=== PATIENT | male | born 1985 | race Caucasian/White ===

== ENCOUNTER 2017-08-14 14:14 | Emergency (ER) | payer OTHER ==
[2017-08-14 14:44] VITALS: RESP 18
[2017-08-14] MEDS ORDERED: Amoxicillin-Clav 875-125 mg Tab PO STA (14:48)
--- NOTE | 2017-08-14 14:59 | ED PDOC ---
Arrival/HPI - General Chief Complaint: Bite Time Seen by Provider: 08/14/17 14:47 Historian: Patient EM Caveat: Acuity of Condition - History of Present Illness Narrative History of Present Illness (Text): 08/14/17 14:54 Pt is a 31 yr old male who presents to the ED for a dog bite to the right 5th digit today. Pt says he was playing with the dog at the park when the dog unintentionally bit him, breaking skin. Dog is a well known healthy dog who frequents the park with electronics repair technician daily however pt is unaware if the animal has been vaccinated for rabies. Denies pain, swelling or discharge at wound site, no fever, sob, cp, no change in motor or sensation. Pt states last rabies vaccination series approx 5 yrs ago. Time/Duration: 24 hours Symptom Onset: Sudden Symptom Course: Unchanged Quality: Unable to Describe Severity Level: 1 Activities at Onset: Rest Context: Other (park) Past Medical History - Provider Review Nursing Documentation Reviewed: Yes - Travel History Have you recently traveled outside [place] w/in the past 3 mons?: No - Infectious Disease Hx of Infectious Diseases: None - Cardiac Hx Cardiac Disorders: No - Neurological Hx Neurological Disorder: No - HEENT Other/Comment: mononucleosis - Renal Hx Renal Disorder: No - Endocrine/Metabolic Hx Endocrine Disorders: No - Genitourinary/Gynecological Hx Genitourinary Disorders: No - Psychiatric Hx Substance Use: No - Anesthesia Hx Anesthesia: No Family/Social History - Physician Review Nursing Documentation Reviewed: Yes Family/Social History: Unknown Family HX Smoking Status: Unknown If Ever Smoked Hx Alcohol Use: No Hx Substance Use: No Allergies/Home Meds Allergies/Adverse Reactions: Allergies No Known Allergies Allergy (Verified 08/14/17 14:36) Review of Systems - Review of Systems Systems not reviewed;Unavailable: Acuity of Condition Constitutional: Normal Eyes: Normal ENT: Normal Respiratory: Normal Cardiovascular: Normal Gastrointestinal: Normal Genitourinary Male: Normal Musculoskeletal: Normal Skin: Normal, Skin Lesions (on the back of right 5th finger) Neurological: Normal Endocrine: Normal Hemo/Lymphatic: Normal Psychiatric: Normal Physical Exam Vital Signs Reviewed: Yes Vital Signs Temp Pulse Resp BP Pulse Ox 08/14/17 15:51 98.6 F 78 18 132/78 99 08/14/17 14:43 98.7 F 76 18 148/90 98 Temperature: Afebrile Blood Pressure: Normal Pulse: Regular Respiratory Rate: Normal Appearance: Positive for: Well-Appearing, Non-Toxic, Comfortable Pain Distress: None Mental Status: Positive for: Alert and Oriented X 3 - Systems Exam Head: Present: Atraumatic, Normocephalic Respiratory/Chest: Present: Clear to Auscultation, Good Air Exchange. No: Respiratory Distress, Accessory Muscle Use Cardiovascular: Present: Regular Rate and Rhythm, Normal S1, S2. No: Murmurs Abdomen: Present: Normal Bowel Sounds. No: Tenderness, Distention, Peritoneal Signs Back: Present: Normal Inspection Upper Extremity: Present: Normal Inspection, Normal ROM, NORMAL PULSES, Capillary Refill < 2s. No: Cyanosis, Edema, Tenderness, Swelling Lower Extremity: Present: Normal Inspection. No: Edema Neurological: Present: GCS=15, CN II-XII Intact, Speech Normal Skin: Present: Warm, Dry, Normal Color, Other (small superficial laceration from dog tooth on dorsal aspect of right 5th digit). No: Rashes Lymphatic: No: Cervical Adenopathy, Axillary Adenopathy Psychiatric: Present: Alert, Oriented x 3, Normal Insight, Normal Concentration Medical Decision Making ED Course and Treatment: 08/14/17 14:57 Impression Pt is a 31 yr old male who presents to the ED for a dog bite to the right 5th digit today. Plan augmenting 875 PO stat Rabies 2.5 units stat next and last one Day 3 (pt was previously vaccinated 5 yrs ago) assess and dispo Progress Note 1/2 Rabies vaccination given in accordance with CDC guidelines for someone who has previously been vaccinated for Rabies. Next vacc in 3 days Pt advised to return for 2nd vacc Received Augmentin po ppx care augmentin po x 7 days VSS on d/c - Medication Orders Current Medication Orders: Discontinued Medications Amoxicillin/Clavulanate Potassium (Augmentin 875 Mg-125 Mg Tab) 1 tab PO STAT STA PRN Reason: Protocol Stop: 08/14/17 14:49 Last Admin: 08/14/17 14:57 Dose: 1 tab Rabies Vaccine Human Diploid Cell (Imovax Rabies) 2.5 units IM .ONCE ONE Stop: 08/14/17 14:51 Last Admin: 08/14/17 15:02 Dose: 2.5 units Disposition/Present on Arrival - Present on Arrival Any Indicators Present on Arrival: Yes History of DVT/PE: No History of Uncontrolled Diabetes: No Urinary Catheter: No History of Decub. Ulcer: No History Surgical Site Infection Following: None - Disposition Have Diagnosis and Disposition been Completed?: Yes Diagnosis: Dog bite of hand without complication Disposition: HOME/ ROUTINE Disposition Time: 14:59 Patient Plan: Discharge Condition: GOOD Discharge Instructions (ExitCare): Animal Bites (DC), Rabies Vaccine Additional Instructions: SAM HERNANDEZ, thank you for letting us take care of you today. Your provider was Campos Celestin MD and JESSIKA Stewart, and you were treated for DOG BITE. The emergency medical care you received today was directed at your acute symptoms. If you were prescribed any medication, please fill it and take as directed. It may take several days for your symptoms to resolve. Return to the Emergency Department if your symptoms worsen, do not improve, or if you have any other problems. RETURN IN 3 DAYS FOR THE FINAL RABIES VACCINATION TAKE THE AUGMENTIN EVERY 12 HRS UNTIL DONE Please contact your doctor or call one of the physicians/clinics you have been referred to that are listed on the Patient Visit Information form that is included in your discharge packet. Bring any paperwork you were given at discharge with you along with any medications you are taking to your follow up visit. Our treatment cannot replace ongoing medical care by a primary care provider outside of the emergency department. Thank you for allowing the [facility] team to be part of your care today. Prescriptions: Amoxicillin/Clavulanate [Augmentin 875 MG-125 MG] 1 tab PO BID 7 Days #14 tab Forms: [employer] ([place])
[2017-08-14 15:51] VITALS: BP 132/78; PULSE 78; TEMP 98.6; O2SAT 99
== END 2017-08-14 15:01 | disposition home or self-care (01) ==
LOC: ED 14:14
DX: S61.451A Open bite of right hand, initial encounter (principal); W54.0XXA Bitten by dog, initial encounter; Y92.830 Public park as the place of occurrence of the external cause; Z23 Encounter for immunization

== ENCOUNTER 2017-08-17 20:42 | Emergency (ER) | payer OTHER ==
[2017-08-17 21:14] VITALS: RESP 17
--- NOTE | 2017-08-17 21:23 | ED PDOC ---
Arrival/HPI - General Chief Complaint: Medical Clearance Time Seen by Provider: 08/17/17 20:54 Historian: Patient - History of Present Illness Narrative History of Present Illness (Text): 08/17/17 21:13 A 31 year old male, with no significant past medical history presents to the emergency department for 2nd rabies shot. Patient reports he was seen here in the emergency room 3 days ago after obtaining dog bite to right 5th digit from an unknown rabies status dog, here today only for the rabies 2nd vaccination, rt. hand 5th digit already healed and he was discharge home with augmentin. Patient denies fever, chills, difficulty of extention/flexion of hand and 5 digits, or any other complaints at this time. Past Medical History - Provider Review Nursing Documentation Reviewed: Yes - Infectious Disease Hx of Infectious Diseases: None - Cardiac Hx Cardiac Disorders: No - Neurological Hx Neurological Disorder: No - HEENT Other/Comment: mononucleosis - Renal Hx Renal Disorder: No - Endocrine/Metabolic Hx Endocrine Disorders: No - Genitourinary/Gynecological Hx Genitourinary Disorders: No - Psychiatric Hx Substance Use: No - Anesthesia Hx Anesthesia: No Family/Social History - Physician Review Nursing Documentation Reviewed: Yes Family/Social History: No Known Family HX Smoking Status: Unknown If Ever Smoked Hx Alcohol Use: No Hx Substance Use: No Allergies/Home Meds Allergies/Adverse Reactions: Allergies No Known Allergies Allergy (Verified 08/14/17 14:36) Home Medications: Home Meds Medication Instructions Recorded Confirmed No Known Home Med 08/17/17 08/17/17 Review of Systems - Physician Review All systems were reviewed & negative as marked: Yes - Review of Systems Constitutional: absent: Fevers, Night Sweats ENT: absent: Hearing Changes Respiratory: absent: SOB, Cough Cardiovascular: absent: Chest Pain Gastrointestinal: absent: Abdominal Pain, Nausea, Vomiting Musculoskeletal: absent: Arthralgias, Back Pain Skin: absent: Rash, Pruritis, Skin Lesions Neurological: absent: Headache, Dizziness Psychiatric: absent: Anxiety, Depression Physical Exam Vital Signs Reviewed: Yes Vital Signs Temp Pulse Resp BP Pulse Ox 08/17/17 21:05 98.2 F 76 17 151/87 H 100 Temperature: Afebrile Blood Pressure: Hypertensive Pulse: Regular Respiratory Rate: Normal Appearance: Positive for: Well-Appearing, Non-Toxic, Comfortable Pain Distress: None Mental Status: Positive for: Alert and Oriented X 3 - Systems Exam Head: Present: Atraumatic, Normocephalic Pupils: Present: PERRL Extroacular Muscles: Present: EOMI Conjunctiva: Present: Normal Mouth: Present: Moist Mucous Membranes Neck: Present: Normal Range of Motion Respiratory/Chest: Present: Clear to Auscultation, Good Air Exchange. No: Respiratory Distress, Accessory Muscle Use Cardiovascular: Present: Regular Rate and Rhythm, Normal S1, S2. No: Murmurs Abdomen: No: Tenderness, Distention, Peritoneal Signs Back: Present: Normal Inspection Upper Extremity: Present: Normal Inspection, Other (Rt. hand 5th digit dorsal noted to have healed scar noted with no oozing/discharge). No: Cyanosis, Edema Lower Extremity: Present: Normal Inspection. No: Edema Neurological: Present: GCS=15, CN II-XII Intact, Speech Normal Skin: Present: Warm, Dry, Normal Color. No: Rashes Psychiatric: Present: Alert, Oriented x 3, Normal Insight, Normal Concentration Medical Decision Making ED Course and Treatment: 08/17/17 21:15 Impression: 31 year old male here for 2nd shot of rabies vaccination. Plan: -- Rabies Vaccine -- Reassess and disposition Prior Visits: Patient came to the Emergency room on 08/14/2017 for dog bite to right 5th digit and received 1st Rabies vaccination the same day. Progress Notes: 08/17/17 21:20 -Pt. has no previous adverse or allergic reaction to the rabies vaccine. -Discharge home with education on return the day 7 and 14 from the initial dog bite and 1st vaccine wound for the prophylatic vaccine, return to the ER for any new or worsening signs or symptoms. - Medication Orders Current Medication Orders: Discontinued Medications Rabies Vaccine Human Diploid Cell (Imovax Rabies) 2.5 units IM .ONCE ONE Stop: 08/17/17 21:16 - PA / LADDERMAN / Resident Statement MD/DO has reviewed & agrees with the documentation as recorded. - Scribe Statement The provider has reviewed the documentation as recorded by the Lizy Carpenter Provider Scribe Provider Scribe Attestation: All medical record entries made by the Scribe were at my direction and personally dictated by me. I have reviewed the chart and agree that the record accurately reflects my personal performance of the history, physical exam, medical decision making, and the department course for this patient. I have also personally directed, reviewed, and agree with the discharge instructions and disposition. Disposition/Present on Arrival - Present on Arrival Any Indicators Present on Arrival: No History of DVT/PE: No History of Uncontrolled Diabetes: No Urinary Catheter: No History of Decub. Ulcer: No History Surgical Site Infection Following: None - Disposition Have Diagnosis and Disposition been Completed?: Yes Diagnosis: Visit for wound check, Rabies, need for prophylactic vaccination against Disposition: HOME/ ROUTINE Disposition Time: 21:26 Patient Plan: Discharge Patient Problems: Current Active Problems Problem Status Onset Visit for wound check Acute Rabies, need for prophylactic vaccination against Acute Condition: GOOD Additional Instructions: Discharge home with education on return the day 7 and 14 from the initial dog bite and 1st vaccine wound for the prophylatic vaccine, return to the ER for any new or worsening signs or symptoms. Referrals: [facility] [place] [Outside] - Follow up with primary Forms: [employer] (Irish), WORK NOTE
[2017-08-17 21:49] VITALS: BP 148/82; PULSE 78; TEMP 98; O2SAT 98
== END 2017-08-17 21:49 | disposition home or self-care (01) ==
LOC: ED 20:42
DX: Z23 Encounter for immunization (principal); S61.256D Open bite of right little finger without damage to nail, subsequent encounter; W54.0XXD Bitten by dog, subsequent encounter

== ENCOUNTER 2017-08-21 21:32 | Emergency (ER) | payer OTHER ==
[2017-08-21 21:47] VITALS: BP 135/85; RESP 18; O2SAT 99
--- NOTE | 2017-08-21 22:32 | ED PDOC ---
Arrival/HPI - General Chief Complaint: Rabies Vaccine Series Time Seen by Provider: 08/21/17 22:24 Historian: Patient - History of Present Illness Narrative History of Present Illness (Text): 08/21/17 22:29 Pt is a 31 year old male who presents to the emergency department for 3nd rabies shot. Patient reports he was seen here in the emergency room 3 days ago after obtaining dog bite to right 5th digit with rabies status unknown, here today only for the rabies 3rd vaccination. Right hand 5th digit well healed and completed course of augmentin. Patient denies fever, n/v/d, paresthesia or motor dysfunction or any other complaints at this time. Time/Duration: < month Symptom Onset: Sudden Symptom Course: Resolved Quality: Unable to Describe Severity Level: 1 Activities at Onset: Rest Context: Home Past Medical History - Provider Review Nursing Documentation Reviewed: Yes - Travel History Have you recently traveled outside [place] w/in the past 3 mons?: No - Infectious Disease Hx of Infectious Diseases: None - Cardiac Hx Cardiac Disorders: No - Neurological Hx Neurological Disorder: No - HEENT Other/Comment: mononucleosis - Renal Hx Renal Disorder: No - Endocrine/Metabolic Hx Endocrine Disorders: No - Genitourinary/Gynecological Hx Genitourinary Disorders: No - Psychiatric Hx Substance Use: No - Anesthesia Hx Anesthesia: No Family/Social History - Physician Review Nursing Documentation Reviewed: Yes Family/Social History: Unknown Family HX Smoking Status: Unknown If Ever Smoked Hx Alcohol Use: No Hx Substance Use: No Allergies/Home Meds Allergies/Adverse Reactions: Allergies No Known Allergies Allergy (Verified 08/21/17 21:47) Home Medications: Home Meds Medication Instructions Recorded Confirmed No Known Home Med 08/17/17 08/21/17 Review of Systems - Review of Systems Constitutional: Normal Eyes: Normal ENT: Normal Respiratory: Normal Cardiovascular: Normal Gastrointestinal: Normal Genitourinary Male: Normal Musculoskeletal: Normal Skin: Normal Neurological: Normal Endocrine: Normal Hemo/Lymphatic: Normal Psychiatric: Normal Physical Exam Vital Signs Reviewed: Yes Vital Signs Temp Pulse Resp BP Pulse Ox 08/22/17 00:15 98.0 F 75 18 99 08/21/17 21:45 98.6 F 71 18 135/85 99 Temperature: Afebrile Blood Pressure: Normal Pulse: Regular Respiratory Rate: Normal Appearance: Positive for: Well-Appearing, Non-Toxic, Comfortable Pain Distress: None Mental Status: Positive for: Alert and Oriented X 3 - Systems Exam Head: Present: Atraumatic, Normocephalic Neck: Present: Normal Range of Motion Respiratory/Chest: Present: Clear to Auscultation, Good Air Exchange. No: Respiratory Distress, Accessory Muscle Use Cardiovascular: Present: Regular Rate and Rhythm, Normal S1, S2. No: Murmurs Abdomen: No: Tenderness, Distention, Peritoneal Signs Back: Present: Normal Inspection Upper Extremity: Present: Normal Inspection. No: Cyanosis, Edema Lower Extremity: Present: Normal Inspection. No: Edema Neurological: Present: GCS=15, CN II-XII Intact, Speech Normal Skin: Present: Warm, Dry, Normal Color. No: Rashes Psychiatric: Present: Alert, Oriented x 3, Normal Insight, Normal Concentration Medical Decision Making ED Course and Treatment: 08/21/17 22:31 31 year old male who presents to the emergency department for 3nd rabies shot. Plan Rabies vaccination 04/09 assess and dispo home Progress note rabies vaccine 2.5 units IM VSS on d/c 08/22/17 01:58 Pt was told to return for 4th vaccination in 7 days - Medication Orders Current Medication Orders: Discontinued Medications Rabies Vaccine Human Diploid Cell (Imovax Rabies) 2.5 units IM .ONCE ONE Stop: 08/21/17 22:26 Last Admin: 08/21/17 22:47 Dose: 2.5 units MAR Immunization Data Document 08/21/17 22:47 (Rec: 08/21/17 22:47 [facility]-[id number]) Immunization Data Vaccine Information Sheet Given Yes Immunization Registry Document 08/21/17 22:47 (Rec: 08/21/17 22:47 [facility]-[id number]) Immunization Registry Consent Date 08/17/17 Disposition/Present on Arrival - Present on Arrival Any Indicators Present on Arrival: Yes History of DVT/PE: No History of Uncontrolled Diabetes: No Urinary Catheter: No History of Decub. Ulcer: No History Surgical Site Infection Following: None - Disposition Have Diagnosis and Disposition been Completed?: Yes Diagnosis: Need for prophylactic vaccination and inoculation against rabies Disposition: HOME/ ROUTINE Disposition Time: 22:33 Patient Plan: Discharge Condition: STABLE Referrals: PCP,NO [Primary Care Provider] - Follow up with primary Forms: [employer] (Wolof)
[2017-08-22 00:16] VITALS: PULSE 75; TEMP 98
== END 2017-08-22 00:16 | disposition home or self-care (01) ==
LOC: ED 21:32
DX: Z23 Encounter for immunization (principal)